=== PATIENT | female | born 1980 | race Hispanic/Latino ===

== ENCOUNTER → 2017-12-17 | Outpatient (REF) | payer OTHER ==
[2017-12-17 15:19] LABS: ERYTHROCYTE SEDIMENTATION RATE 2 mm/hr (0-20)
[2017-12-17 23:26] LABS: C REACTIVE PROTEIN QUANTITATIV < 0.30 MG/DL (0.00-0.30)
[2017-12-24 00:06] LABS: HLA-B27 Negative (.)
== END ==
LOC: M LABDRAW1 14:15
DX: Z01.812 Encounter for preprocedural laboratory examination (principal)

== ENCOUNTER → 2020-03-15 | Outpatient (CLI) | payer OTHER ==
[2020-03-15 14:58] LABS: PLATELET COUNT, AUTOMATED 234 10^3/uL (150-450)
[2020-03-15 15:10] LABS: PROTHROMBIN TIME 13.5 SECONDS (12.5-14.3)
[2020-03-15 15:11] LABS: PARTIAL THROMBOPLASTIN TIME 25.3 SECONDS (24.2-38.5)
[2020-03-15 15:25] LABS: COLLAGEN EPINEPHRINE 107 SECONDS (74-162)
== END ==
LOC: M LAB 14:29
PROVIDERS: ATTEND Physician Assistant
DX: M51.26 Other intervertebral disc displacement, lumbar region (principal)

== ENCOUNTER 2020-07-26 04:38 | Emergency (ER) | payer OTHER ==
[~2020-07-26] VITALS: Ht 172.7 cm; Wt 100.2 kg
[2020-07-26] MEDS ORDERED: SILD50TA8 PO (04:50)
[2020-07-26] MEDS ORDERED: KETOROLAC 60MG 2ML VIAL IM ONE (05:10)
[2020-07-26] MEDS ORDERED: CYCLOBENZAPRINE 5MG TABLET PO ONE (05:10)
[2020-07-26] MEDS ORDERED: CYCL5TAB PO (05:11)
[2020-07-26] MEDS ORDERED: NAPR-837 PO (05:11)
[2020-07-26 05:15] VITALS: BP 116/72
== END 2020-07-26 05:29 | disposition home or self-care (01) ==
LOC: EDSEX 04:38 → M ED 04:38
DX: M54.2 Cervicalgia (principal); Z88.1 Allergy status to other antibiotic agents
CPT/HCPCS: 96372; 99283; J1885

== ENCOUNTER 2020-07-27 00:15 | Emergency (ER) | payer OTHER ==
[~2020-07-27] VITALS: Ht 172.7 cm; Wt 100.5 kg
[~2020-07-27 00:15] MED LIST: CYCL5TAB PO; NAPR-837 PO; SILD50TA8 PO
[2020-07-27] MEDS ORDERED: OXYCODONE/APAP 5MG/325MG(BULK FOR ED) 1 TABLET PO ONE (01:20)
[2020-07-27 01:42] VITALS: BP 126/82
== END 2020-07-27 01:44 | disposition home or self-care (01) ==
LOC: M ED 00:15
DX: M54.2 Cervicalgia (principal); F17.200 Nicotine dependence, unspecified, uncomplicated; Z88.1 Allergy status to other antibiotic agents

== ENCOUNTER → 2020-08-24 | Outpatient (CLI) | payer OTHER ==
--- NOTE | 2020-08-25 16:06 | REPVR ---
PROCEDURE INFORMATION: Exam: MR Cervical Spine Without Contrast Exam date and time: 08/24/2020 1:52 PM Age: 40 years old Clinical indication: Neck pain; Additional info: Cervical neck pain w/ decreased rom w/ rue radic TECHNIQUE: Imaging protocol: Multiplanar magnetic resonance images of the cervical spine without contrast. COMPARISON: No relevant prior studies available. FINDINGS: Vertebrae: Unremarkable. Spinal cord: Normal signal. Mild deformity at C6/7. C2-C3: No significant disc disease. No significant spinal stenosis. C3-C4: There is a moderate disc/osteophyte complex that flattens the ventral thecal sac. There is moderate bilateral uncovertebral joint arthropathy. There is mild bilateral neuroforaminal narrowing. C4-C5: There is a moderate disc/osteophyte complex that flattens the ventral thecal sac. There is moderate bilateral uncovertebral joint arthropathy. There is mild bilateral neuroforaminal narrowing. C5-C6: There is a moderate disc/osteophyte complex that flattens the ventral thecal sac. There is a small central disc protrusion. There is bilateral uncovertebral joint arthropathy, worse on the left. There is mild/moderate bilateral neuroforaminal narrowing, left worse than right. C6-C7: There is a large right subarticular disc protrusion. There is moderate right-sided neuroforaminal narrowing. There is mild spinal canal stenosis. C7-T1: No significant disc disease. No significant spinal stenosis. Soft tissues: Unremarkable. IMPRESSION: Multilevel degenerative changes with variable degrees of spinal canal and neuroforaminal narrowing. Large right subarticular disc herniation at C6/7. Please see details above. Electronically signed by: Nirmal Tiwari On 08/25/2020 16:05:31 PM
== END ==
LOC: M PLAIMG 12:47
PROVIDERS: ATTEND Physician Assistant
DX: M54.2 Cervicalgia (principal)

== ENCOUNTER → 2021-05-02 | Outpatient (CLI) | payer OTHER | LOC: M CARPUL 12:49 | DX: R94.31 Abnormal electrocardiogram [ECG] [EKG] (principal) ==